=== PATIENT | male | born 1965 ===

== ENCOUNTER 2018-12-07 18:46 | Emergency (ER) | payer OTHER ==
[2018-12-07] MEDS ORDERED: TORAdol 30 mg Injection IM ONE (19:32)
[2018-12-07] MEDS ORDERED: DECADRON 10MG INJ. IV ONE (19:32)
[2018-12-07] MEDS ORDERED: SUBLIMAZE 100 MCG/2 ML IV ONE (19:32)
[2018-12-07] MEDS ORDERED: Zofran 4 MG/2 ML VIAL IV ONE (19:32)
[2018-12-07] MEDS ORDERED: Norflex 60 MG/2 ML IM ONE (19:32)
[2018-12-07] MEDS ORDERED: Sodium Chloride 0.9% 1000 ML 1,000 ML IV SCH (19:45)
[2018-12-07] MEDS ORDERED: Zofran 4 MG/2 ML VIAL ONE (19:52)
[2018-12-07] MEDS ORDERED: SUBLIMAZE 100 MCG/2 ML ONE (19:53)
[2018-12-07] MEDS ORDERED: Norflex 60 MG/2 ML ONE (19:53)
[2018-12-07] MEDS ORDERED: TORAdol 30 mg Injection ONE (19:53)
[2018-12-07] MEDS ORDERED: DECADRON 10MG INJ. ONE (19:54)
[2018-12-07] MEDS ORDERED: Sodium Chloride 0.9% 1000 ML 1,000 ML ONE (19:54)
--- NOTE | 2018-12-07 20:07 | ERPHSYRPT ---
- History of Present Illness Time Seen by Provider: 12/07/18 18:56 Source: patient, family Exam Limitations: no limitations Patient Subjective Stated Complaint: Back pain Triage Nursing Assessment: Patient brought back to ED via w/c and transferred self to bed. Patient A+O X 3. Patient complains of lower back pain radiating down left leg to knee 08/26. Patient states pain started two weeks ago. Patient denies injury. No bruising noted. Physician History: patient with long hx of back pain and injuries and surgeries; about 3 weeks ago developed left sided lower back pain; no known injury; onset after getting up one morning; over the next week the pain was tolerable; went to the clinic and got some steroids and muscle relaxers; sees a pain doc for chronic pain; about a week ago the pain became severe after getting better; saw his pain doc and got an injection in his back; got reasonable relief over the weekend; today pain returned more severe and radiates down left leg to the knee; no sensory loss; no weakness; no change in ;slight decrease in BMs; no incontinence; no falls or known injury recently; meds no longer helping; had an MRI today- doesn' t know results ; Timing/Duration: today (much worse), day(s) (4 days improved), week(s) (3 weeks onset of disomfort; two weeks ago worse and seen at clinic; saw pain MD 5 days ago and injected), gradual onset, sudden (today), worse Method of Injury: unknown Quality: sharp, aching Back Pain Location: lumbar spine (left mid lower) Back Pain Radiation: upper legs (left) Severity of Pain-Max: severe Severity of Pain-Current: severe Modifying Factors: Improves With: movement (aggravates), pain medication (not helping) Associated Symptoms: constipation (mild), lower back pain (left), muscle spasms , No urinary incontinence, No loss of bowel control, No nausea, No vomiting, No problems urinating, No numbness in legs/feet, No weakness, No sensory/motor loss , No tingling in legs/feet Previous symptoms: different symptoms, recently seen, recently treated Allergies/Adverse Reactions: No Known Drug Allergies Allergy (Verified 12/07/18 18:58) Home Medications: Hydrocodone Bit/Acetaminophen [[place] 10-325 Tablet] 1 tab PO Q6H PRN 03/31/15 [ History] Hx Influenza Vaccination/Date Given: Yes Hx Pneumococcal Vaccination/Date Given: Yes Immunizations Up to Date: Yes - Review of Systems Constitutional: No Symptoms Eyes: No Symptoms Ears, Nose, & Throat: No Symptoms Respiratory: No Cough, No Dyspnea, No Wheezing Cardiac: No Chest Pain, No Palpitations, No Syncope Abdominal/Gastrointestinal: Constipation (mild), No Abdominal Pain, No Nausea, No Vomiting, No Diarrhea Genitourinary Symptoms: No Dysuria, No Frequency, No Hematuria, No Hesitancy, No Incontinence, No Urinary Retention Musculoskeletal: Back Pain, No Fall, No Injury Skin: No Symptoms Neurological: No Dizziness, No Focal Weakness, No Headache, No Paralysis, No Parasthesia, No Seizure, No Sensory Changes Psychological: No Symptoms Endocrine: No Symptoms Hematologic/Lymphatic: No Symptoms Immunological/Allergic: No Symptoms - Past Medical History Pertinent Past Medical History: Yes Neurological History: No Pertinent History ENT History: No Pertinent History Cardiac History: No Pertinent History Respiratory History: No Pertinent History Endocrine Medical History: No Pertinent History Musculoskeletal History: Fractures, Other GI Medical History: No Pertinent History History: No Pertinent History Psycho-Social History: No Pertinent History Male Reproductive Disorders: No Pertinent History Other Medical History: MULTIPLE BONE FRACTURES IN THE PAST - Past Surgical History Past Surgical History: Yes Neuro Surgical History: No Pertinent History Cardiac: No Pertinent History Respiratory: No Pertinent History Musculoskeletal: Orthopedic Surgery (back and neck), Other Other Surgical History: BACK AND KNEE SURGERIES. Spleen removed 2014 - Social History Smoking Status: Current every day smoker How long have you smoked: 30 Exposure to second hand smoke: Yes Alcohol Use: Socially Drug Use: none Patient Lives Alone: No Significant Family History: no pertinent family hx - Female History Hx Now: No - Nursing Vital Signs Nursing Vital Signs: Initial Vital Signs Temperature 97.7 F 12/07/18 19:00 Pulse Rate 103 H 12/07/18 19:00 Respiratory Rate 18 12/07/18 19:00 Blood Pressure 131/89 12/07/18 19:00 O2 Sat by Pulse Oximetry 99 12/07/18 19:00 Pain Scale Pain Intensity 7 - Physical Exam General Appearance: severe distress, alert, thin, other (restless and agitated) Eye Exam: PERRL/EOMI, eyes nml inspection Ears, Nose, Throat Exam: normal ENT inspection, TMs normal, pharynx normal, moist mucous membranes Neck Exam: normal inspection, non-tender, supple, full range of motion, No meningismus, No JVD Respiratory Exam: normal breath sounds, lungs clear, airway intact, No chest tenderness, No respiratory distress Cardiovascular Exam: regular rate/rhythm, normal heart sounds, normal peripheral pulses, murmur, tachycardia (104), capillary refill <2 sec, No edema Gastrointestinal Exam: soft, normal bowel sounds, No tenderness, No guarding, No rebound, No organomegaly Rectal Exam: deferred Back Exam: decreased range of motion, muscle spasm, point tenderness (left mid to lower LS perispinous), No normal inspection (scars; straightening with loss of normal LS curvature), No normal range of motion (pain), No CVA tenderness, No vertebral tenderness, No rash Extremity Exam: normal inspection, limited range of motion (lower back and left lower leg), No normal range of motion (decreased stratigh leg raising left), No calf tenderness, No parasthesia, No paralysis, No zina's sign, No pedal edema, No swelling, No tenderness Peripheral Pulses: carotid (R): 4+, carotid (L): 4+, femoral (R): 4+, femoral (L ): 4+, dorsalis-pedis (R): 3+, dorsalis-pedis (L): 3+ Neurologic Exam: alert, oriented x 3, cooperative, 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, nml cerebellar function, sensation nml, agitation, other (dTRs RLL wnl; LLL deminished but present), No normal mood/affect (agitated), No nml station & gait (due to lower back pain), No motor deficits, No motor weakness Skin Exam: normal color, warm, dry, No rash SpO2 Interpretation: normal SpO2: 99 O2 Delivery: Room Air - Course Nursing assessment & vital signs reviewed: Yes Ordered Tests: Active Orders 24 hr Category Date Time Status IV Insertion STAT Care 12/07/18 19:32 Active Re-Check Vital Signs STAT Care 12/07/18 19:32 Active Medication Summary Generic Name Dose Route Start Last Admin Trade Name Freq PRN Reason Stop Dose Admin Sodium Chloride 1,000 mls @ 100 mls/hr 12/07/18 19:45 12/07/18 19:57 Sodium Chloride 0.9% 1000 Ml IV 01/06/19 19:44 100 mls/hr .Q10H VICKIE Administration Discontinued Medications Generic Name Dose Route Start Last Admin Trade Name Fredi PRN Reason Stop Dose Admin Dexamethasone Sodium Phosphate 8 mg 12/07/18 19:32 12/07/18 20:02 Decadron 10mg Inj. IV 12/07/18 19:33 8 mg STAT ONE Administration Dexamethasone Sodium Phosphate Confirm 12/07/18 19:54 Decadron 10mg Inj. Administered 12/07/18 19:55 Dose 10 mg .ROUTE .STK-MED ONE Fentanyl Citrate 75 mcg 12/07/18 19:32 12/07/18 20:06 Sublimaze 100 Mcg/2 Ml IV 12/07/18 19:33 75 mcg STAT ONE Administration Fentanyl Citrate Confirm 12/07/18 19:53 Sublimaze 100 Mcg/2 Ml Administered 12/07/18 19:54 Dose 100 mcg .ROUTE .STK-MED ONE Hydromorphone HCl 1 mg 12/07/18 20:49 12/07/18 20:54 Hydromorphone 1 Mg/Ml Ampule IM 12/07/18 20:50 1 mg STAT ONE Administration Hydromorphone HCl Confirm 12/07/18 20:53 Hydromorphone 1 Mg/Ml Ampule Administered 12/07/18 20:54 Dose 1 mg .ROUTE .STK-MED ONE Ketorolac Tromethamine 60 mg 12/07/18 19:32 12/07/18 20:11 Toradol 30 Mg Injection IM 12/07/18 19:33 60 mg STAT ONE Administration Ketorolac Tromethamine Confirm 12/07/18 19:53 Toradol 30 Mg Injection Administered 12/07/18 19:54 Dose 60 mg .ROUTE .STK-MED ONE Ondansetron HCl 4 mg 12/07/18 19:32 12/07/18 19:59 Zofran 4 Mg/2 Ml Vial IV 12/07/18 19:33 4 mg STAT ONE Administration Ondansetron HCl Confirm 12/07/18 19:52 Zofran 4 Mg/2 Ml Vial Administered 12/07/18 19:53 Dose 4 mg .ROUTE .STK-MED ONE Orphenadrine Citrate 60 mg 12/07/18 19:32 12/07/18 20:13 Norflex 60 Mg/2 Ml IM 12/07/18 19:33 60 mg STAT ONE Administration Orphenadrine Citrate Confirm 12/07/18 19:53 Norflex 60 Mg/2 Ml Administered 12/07/18 19:54 Dose 60 mg .ROUTE .STK-MED ONE - Progress Progress: improved, pain not gone completely, re-examined (after meds) Progress Note: 12/07/18 20:13 family at bedside; reviewed MRI and showsL4-L5 degen disc bulge with left lateral broad based disc protrusion and subsequent left foraminal stenosis and impingement of the exiting left L4 nerve root; this was shred with the patient; IV started and meds given for pain relief; will monitor and recheck 12/07/18 20:23 rechecked after initial pain meds and starting to get some relief. will monitor and recheck 12/07/18 21:20 recheck; at bedside; pain continue to improve; no change in neuro stats; reviewed findings; patient to call Pain Dr in am and review MRI findings for referral and definitive treatment; copy given to patient; instructions given Counseled pt/family regarding: diagnosis, need for follow-up, rad results - Departure Time of Disposition: 21:22 Departure Disposition: Home Clinical Impression: Acute back pain with sciatica, degen bulging disc L4L5, impingement L4 nerve root left Condition: Stable Critical Care Time: No Referrals: JOCE PATEL [Primary Care Provider] - Instructions: Low Back Pain (DC), Sciatica (DC) Additional Instructions: rest; Call Pain doctor in am for recheck with MRI results; continue home meds Back pain instructions. Rest, ice x 24-48 hours, then warm compresses; no heavy lifting (>20#'s) x 3-5 days; call [facility]MD or Occ Med doctor in am for follow up appointment and or referral as needed. Return if problems. Take meds as prescribed. Follow-up with family doctor as directed. Call for appointment. Return if any problems. If you smoke please stop. Call or follow up with your family doctor for assistance if you need it to stop. Please wear your seatbelt when driving. Have a nice day. Thank you for allowing us to participate in your care today. :o) Dr Williams Fung Prescriptions: Orphenadrine Citrate 100 mg [Norflex 100 MG Tablet] 100 mg PO Q12H PRN PRN #14 tab PRN Reason: Pain Methylprednisolone Packet [Medrol Dosepack] 4 mg PO UD #30 packet Omeprazole Magnesium [Prilosec] 10 mg PO QAM #14 suspdr.pkt
[2018-12-07] MEDS ORDERED: Hydromorphone 1 mg/ml Ampule IM ONE (20:49)
[2018-12-07] MEDS ORDERED: Hydromorphone 1 mg/ml Ampule ONE (20:53)
[2018-12-07 21:39] VITALS: BP 124/82; PULSE 88; O2SAT 97
== END 2018-12-07 21:40 | disposition home or self-care (01) ==
LOC: ED 18:46
DX: M54.9 Dorsalgia, unspecified (principal); M54.30 Sciatica, unspecified side; M51.26 Other intervertebral disc displacement, lumbar region; M25.80 Other specified joint disorders, unspecified joint; K59.00 Constipation, unspecified; M54.5 Low back pain; M62.838 Other muscle spasm; Z79.891 Long term (current) use of opiate analgesic
CPT/HCPCS: 36000; 96360; 96372; 96374; 96375; 99284; J1100; J1170; J1885; J2360; J2405; J3010

== ENCOUNTER 2018-12-11 09:39 | Emergency (ER) | payer OTHER ==
[2018-12-11] MEDS ORDERED: Phenergan 25 MG INJ IM ONE (10:09)
[2018-12-11] MEDS ORDERED: DILAUDID 2 MG INJECTION IM ONE (10:11)
[2018-12-11] MEDS ORDERED: TORAdol 30 mg Injection IM ONE (10:12)
--- NOTE | 2018-12-11 10:25 | ERPHSYRPT ---
- History of Present Illness Time Seen by Provider: 12/11/18 10:00 Source: patient Exam Limitations: clinical condition Patient Subjective Stated Complaint: pt here for lower back pain that is radiating down left leg, was seen here on friday for same thing Triage Nursing Assessment: pt arrived per wc, alert, able to transfer self to bed, resp easy ,skin w/d/p. restless, co pain to lower left back that radiates to leg for 2 weeks no injury Physician History: PATIENT WITH A HISTORY OF LONG-STANDING CHRONIC LOW BACK PAIN, PREVIOUS BACK SURGERY FOR A LUMBAR FRACTURE, PRESENTLY BEING TREATED IN A PAIN CLINIC WITH LOW BACK INJECTIONS, EVALUATED IN EMERGENCY ROOM 5 DAYS AGO FOR INCREASING PAIN OVER THE PAST 3 WEEKS. A RECENT MRI OF THE LUMBAR SPINE WITHOUT CONTRAST ON 12/07/2018 IS CONSISTENT WITH L4-L5 DEGENERATIVE DISC BULGE WITH LEFT LATERAL BROAD BASED DISC PROTRUSION AND SUBSEQUENT LEFT FORAMINAL STENOSIS WITH IMPINGEMENT OF THE EXITING LEFT L-4 NERVE ROOT, MULTILEVEL DEGENERATIVE DISC DISEASE AND INCIDENTAL L-4 VERTEBRAL HEMANGIOMANA AND REMOTE L-1 SUPERIOR ENDPLATE FRACTURE. PATIENT COMPLAINS OF PAIN RADATING DOWN THE BACK OF HIS LEFT LEFT. DENIES LOSS OF BOWEL OR BLADDER DYSFUNCTION. Timing/Duration: week(s) Method of Injury: other (DENIES INJURY) Quality: radiating, sharp, throbbing Back Pain Location: lumbar spine Back Pain Radiation: lower legs Severity of Pain-Max: severe Severity of Pain-Current: severe Modifying Factors: Improves With: movement Associated Symptoms: muscle spasms Previous symptoms: other (CHRONIC LOW BACK PAIN) Allergies/Adverse Reactions: No Known Drug Allergies Allergy (Verified 12/11/18 09:58) Home Medications: Hydrocodone Bit/Acetaminophen [[place] 10-325 Tablet] 1 tab PO Q6H PRN 03/31/15 [ History] Hx Influenza Vaccination/Date Given: Yes Hx Pneumococcal Vaccination/Date Given: Yes Immunizations Up to Date: Yes - Review of Systems Constitutional: No Fever, No Chills Eyes: No Symptoms Ears, Nose, & Throat: No Symptoms Respiratory: No Cough, No Dyspnea Cardiac: No Chest Pain, No Edema, No Syncope Abdominal/Gastrointestinal: No Abdominal Pain, No Nausea, No Vomiting, No Diarrhea Genitourinary Symptoms: No Dysuria Musculoskeletal: No Back Pain, No Neck Pain Skin: No Rash Neurological: No Dizziness, No Focal Weakness, No Sensory Changes Psychological: No Symptoms Endocrine: No Symptoms All Other Systems: Reviewed and Negative - Past Medical History Pertinent Past Medical History: Yes Neurological History: No Pertinent History ENT History: No Pertinent History Cardiac History: No Pertinent History Respiratory History: No Pertinent History Endocrine Medical History: No Pertinent History Musculoskeletal History: Fractures, Other GI Medical History: No Pertinent History History: No Pertinent History Psycho-Social History: No Pertinent History Male Reproductive Disorders: No Pertinent History Other Medical History: MULTIPLE BONE FRACTURES IN THE PAST - Past Surgical History Past Surgical History: Yes Neuro Surgical History: No Pertinent History Cardiac: No Pertinent History Respiratory: No Pertinent History Musculoskeletal: Orthopedic Surgery, Other Other Surgical History: BACK AND KNEE SURGERIES. Spleen removed 2014 - Social History Smoking Status: Current every day smoker How long have you smoked: 30 Exposure to second hand smoke: Yes Alcohol Use: Socially Drug Use: none Patient Lives Alone: No Significant Family History: no pertinent family hx - Nursing Vital Signs Nursing Vital Signs: Initial Vital Signs Temperature 99.3 F 12/11/18 09:52 Pulse Rate 91 H 12/11/18 09:52 Respiratory Rate 18 12/11/18 09:52 Blood Pressure 141/97 12/11/18 09:52 O2 Sat by Pulse Oximetry 97 12/11/18 09:52 Pain Scale Pain Intensity [Back] 10 Pain Intensity 5 - Physical Exam General Appearance: moderate distress Eye Exam: PERRL/EOMI, eyes nml inspection Neck Exam: normal inspection, non-tender, supple, full range of motion, No meningismus, No midline tenderness Respiratory Exam: normal breath sounds, lungs clear, No respiratory distress Cardiovascular Exam: regular rate/rhythm, normal heart sounds Gastrointestinal Exam: soft, No tenderness, No mass Back Exam: normal inspection, vertebral tenderness (THERE IS PARASPINAL LUMBAR TENDERNESS L-2 TO L-5, NO CVA TENDERNESS,), decreased range of motion, muscle spasm Extremity Exam: normal inspection Peripheral Pulses: carotid (R): 2+, carotid (L): 2+, femoral (R): 2+, femoral (L ): 2+, dorsalis-pedis (R): 2+, dorsalis-pedis (L): 2+ Neurologic Exam: alert, oriented x 3, other (STRAIGHT LEG RAISING POSITIVE FOR SCIATIA LLE AT 60 DEGREES) SpO2 Interpretation: normal SpO2: 97 Ordered Tests: Medication Summary Discontinued Medications Generic Name Dose Route Start Last Admin Trade Name Freq PRN Reason Stop Dose Admin Hydromorphone HCl 2 mg 12/11/18 10:11 12/11/18 10:34 Dilaudid 2 Mg Injection IM 12/11/18 10:12 2 mg STAT ONE Administration Hydromorphone HCl Confirm 12/11/18 10:32 Hydromorphone 1 Mg/Ml Ampule Administered 12/11/18 10:33 Dose 2 mg .ROUTE .STK-MED ONE Ketorolac Tromethamine 60 mg 12/11/18 10:12 12/11/18 10:33 Toradol 30 Mg Injection IM 12/11/18 10:13 60 mg STAT ONE Administration Ketorolac Tromethamine Confirm 12/11/18 10:32 Toradol 30 Mg Injection Administered 12/11/18 10:33 Dose 60 mg .ROUTE .STK-MED ONE Promethazine HCl 25 mg 12/11/18 10:09 12/11/18 10:34 Phenergan 25 Mg Inj IM 12/11/18 10:10 25 mg STAT ONE Administration Promethazine HCl Confirm 12/11/18 10:31 Phenergan 25 Mg Inj Administered 12/11/18 10:32 Dose 25 mg .ROUTE .STK-MED ONE - Progress Progress: improved, pain not gone completely Progress Note: 12/11/18 10:29 ADMINISTERED DILAUDID 2MG/PHENERGAN 25MG IM, TORADOL 60MG IM Counseled pt/family regarding: diagnosis, need for follow-up - Departure Time of Disposition: 11:52 Departure Disposition: Home Clinical Impression: DEGENERATIVE DISC DISEASE, Chronic low back pain with sciatica Condition: Stable Critical Care Time: No Referrals: JOCE PATEL [Primary Care Provider] - Additional Instructions: CONTINUE ALL CURRENT MEDICATIONS DIRECTED. NORFLEX 100MG TWICE DAILY FOR 1 WEEK. CONSULT YOUR PRIMARY CARE PROVIDER AND PAIN SPECIALIST FOR PAIN MANAGEMENT. RETURN TO EMERGENCY FOR INCREASING PAIN DISCOMFORT, LOSS OF BOWEL OR BLADDER FUNCTIONS. Prescriptions: Orphenadrine Citrate 100 mg [Norflex 100 MG Tablet] 100 mg PO BID #14 tab
[2018-12-11] MEDS ORDERED: Phenergan 25 MG INJ ONE (10:31)
[2018-12-11] MEDS ORDERED: Hydromorphone 1 mg/ml Ampule ONE (10:32)
[2018-12-11] MEDS ORDERED: TORAdol 30 mg Injection ONE (10:32)
[2018-12-11 12:01] VITALS: BP 132/97; PULSE 69; O2SAT 98
== END 2018-12-11 12:01 | disposition home or self-care (01) ==
LOC: ED 09:39
DX: M51.36 Other intervertebral disc degeneration, lumbar region (principal); M54.30 Sciatica, unspecified side; M54.5 Low back pain; G89.29 Other chronic pain
CPT/HCPCS: 96372; 99284; J1170; J1885; J2550